=== PATIENT | male | born 1980 | race Caucasian/White ===

== ENCOUNTER → 2023-09-04 | Outpatient (CLI) | payer BC ==
[2023-09-04 20:40] LABS: Basophils # (A) 0.06 X 10*3/uL (0.00-0.10); Eosinophils # (A) 0.31 X 10*3/uL (0.04-0.35); Eosinophils % (A) 5.1 %; HCT 45.2 % (39.6-50.0); HGB 14.8 d/dL (13.0-17.0); Lymphocytes # (A) 1.79 X 10*3/uL (0.90-5.00); Lymphocytes % (A) 29.5 %; MCH 30.6 pg (27.0-32.0); MCHC 32.7 d/dL (32.0-37.0); MCV 93.6 FL (80.0-97.0); Mean Platelet Volume 10.7 FL (9.5-12.2); Monocytes # (A) 0.43 X 10*3/uL (0.20-1.00); Monocytes % (A) 7.1 %; NRBC Per 100 WBC 0 X 10*3/uL (0.00-0.01); Neutrophils # (A) 3.45 X 10*3/uL (1.80-7.70); Platelet Count 239 X 10*3/uL (140-440); RBC 4.83 X 10*6/uL (4.40-5.60); RDW 12.2 % (11.5-14.5); WBC 6.06 X 10*3/uL (4.50-10.00)
== END | disposition home or self-care (01) ==
LOC: LABPAT 13:42
PROVIDERS: ATTEND Surgery
DX: Z01.812 Encounter for preprocedural laboratory examination (principal); K42.9 Umbilical hernia without obstruction or gangrene
CPT/HCPCS: 36415; 85025; 86850; 86900; 86901; 93005

== ENCOUNTER 2023-09-09 12:43 | Day surgery (SDC) | payer BC ==
[2023-09-04 08:47] VITALS: BMI 36.2
[~2023-09-09 12:43] MED LIST: LACTATED RINGERS 1,000 ML IV SCH; LIDOCAINE 1% (10MG/ML) FOR IV START INTRADERMA PRN; ONDANSETRON 4 MG/2 ML VIAL IVP PRN
[2023-09-09 13:39] VITALS: RESP 16; TEMP 98.1
[2023-09-09] MEDS ORDERED: PROPOFOL 10 MG/ML 20 ML VIAL IV ONE (14:41)
[2023-09-09] MEDS ORDERED: LIDOCAINE 1% INJ 10MG/ML (20 ML MDV) ONE (14:41)
--- NOTE | 2023-09-09 14:44 | P.GSHP ---
History of Present Illness H&P Date: 09/09/23 Chief Complaint: GI bleed, GERD This a 42-year-old male who presents today for EGD colonoscopy. Patient is issues with GI bleed and GERD. Past Medical History Past Medical History: GERD/Reflux, Hyperlipidemia, Hypertension History of Any Multi-Drug Resistant Organisms: None Reported Past Surgical History: Appendectomy Additional Past Surgical History / Comment(s): scheduled for umbilical hernia surgery Past Anesthesia/Blood Transfusion Reactions: No Reported Reaction Smoking Status: Current every day smoker - Past Family History Mother Family Medical History: Cancer Additional Family Medical History / Comment(s): colon cancer Medications and Allergies Home Medications Medication Instructions Recorded Confirmed Type Atorvastatin [Lipitor] 10 mg PO DAILY 09/04/23 09/04/23 History Omeprazole 40 mg PO DAILY 09/04/23 09/04/23 History amLODIPine [Norvasc] 5 mg PO DAILY 09/04/23 09/04/23 History Allergies Allergy/AdvReac Type Severity Reaction Status Date / Time No Known Allergies Allergy Verified 09/09/23 13:16 Surgical - Exam Vital Signs Temp Pulse Resp BP Pulse Ox 98.1 F 99 16 144/84 94 L 09/09/23 13:30 09/09/23 13:30 09/09/23 13:30 09/09/23 13:30 09/09/23 13:30 - General well developed, well nourished, no distress - Eyes PERRL - ENT normal pinna - Neck no masses - Respiratory normal expansion - Cardiovascular Rhythm: regular - Abdomen Abdomen: soft, non tender Assessment and Plan Assessment: GI bleed, GERD. We'll perform EGD and colonoscopy.
--- NOTE | 2023-09-09 15:11 | P.OP ---
Date of Procedure: 09/09/23 Preoperative Diagnosis: GERD Rectal bleeding Postoperative Diagnosis: Antral gastritis Small sliding hiatal hernia Mild esophagitis Normal colon Mild internal and external hemorrhoids Procedure(s) Performed: EGD Colonoscopy Anesthesia: MAC Surgeon: Carlton Cruz Pathology: other (Antrum, esophagus) Condition: stable Disposition: PACU Description of Procedure: The patient's placed on the operating table in the supine position. He received IV sedation. The gastro-/oropharynx passed in the esophagus and stomach. Scope was placed through the pylorus. The first and second portion of the duodenum appeared normal. Scope was then brought back the antrum this. Mildly inflamed. A biopsies was performed. The scope was then retroflexed the remainder the stomach appeared normal. There was a small sliding hiatal hernia. The GE junction was at 39 7 is. The distal esophagus appeared mildly inflamed. A biopsies performed. The proximal esophagus appeared normal. Next digital rectal exam performed. There was a few internal and external hemorrhoids. The prostate was symmetrical without nodules. The flexible colonoscope was then placed patient anus and passed throughout the entire colon. The ileocecal valve was visualized. The cecum, ascending and transverse colon appeared normal. The descending and sigmoid colon appeared normal. Scope summer back the rectum and this appeared normal. Scope withdrawn for patient. There was no evidence of any active GI bleed. Presumed patient may have had bleeding from hemorrhoids.
[2023-09-09 15:34] VITALS: BP 144/80; PULSE 75
== END 2023-09-09 15:40 | disposition home or self-care (01) ==
LOC: ORWHC2ENDO 12:43
PROVIDERS: ATTEND Surgery
DX: K21.00 Gastro-esophageal reflux disease with esophagitis, without bleeding (principal); K62.5 Hemorrhage of anus and rectum; K29.50 Unspecified chronic gastritis without bleeding; K44.9 Diaphragmatic hernia without obstruction or gangrene; K64.4 Residual hemorrhoidal skin tags; K64.8 Other hemorrhoids; I10 Essential (primary) hypertension; E78.5 Hyperlipidemia, unspecified; K21.9 Gastro-esophageal reflux disease without esophagitis; F17.200 Nicotine dependence, unspecified, uncomplicated; Z90.49 Acquired absence of other specified parts of digestive tract; Z80.0 Family history of malignant neoplasm of digestive organs; Z79.899 Other long term (current) drug therapy; Z98.890 Other specified postprocedural states
CPT/HCPCS: 45378; 43239; J2001; J2704; 88305

== ENCOUNTER 2023-09-11 05:45 | Day surgery (SDC) | payer BC ==
[~2023-09-11 05:45] MED LIST changes: +ACETAMINOPHEN TAB 500 MG TAB PO PRN; +HEPARIN SODIUM,PORCINE/PF 5,000 UNIT/0.5 ML SYRINGE SQ PRN; -LACTATED RINGERS 1,000 ML IV SCH; -LIDOCAINE 1% (10MG/ML) FOR IV START INTRADERMA PRN; -ONDANSETRON 4 MG/2 ML VIAL IVP PRN
[2023-09-11] MEDS ORDERED: HYDROmorphone 0.5 MG/0.5 ML SYRINGE IVP PRN (06:09)
[2023-09-11] MEDS ORDERED: DEXAMETHASONE SOD PHOSPHATE 4 MG/ML 1 ML VIAL IV ONE (06:09)
[2023-09-11] MEDS ORDERED: LIDOCAINE 1% (10MG/ML) FOR IV START INTRADERMA PRN (06:09)
[2023-09-11] MEDS ORDERED: ONDANSETRON 4 MG/2 ML VIAL IVP ONE (06:09)
[2023-09-11] MEDS: LACTATED RINGERS 1,000 ML IV SCH ×2 (06:41→07:27)
[2023-09-11] MEDS ORDERED: MIDAZOLAM 2 MG/2 ML VIAL IVP ONE (07:01)
[2023-09-11] MEDS ORDERED: fentaNYL (PF) 50 MCG/ML 2 ML AMP IVP ONE (07:01)
[2023-09-11] MEDS ORDERED: ROCURONIUM 10 MG/ML (5 ML VIAL) IV ONE (07:24)
[2023-09-11] MEDS ORDERED: MIDAZOLAM 2 MG/2 ML VIAL ONE (07:24)
[2023-09-11] MEDS ORDERED: fentaNYL (PF) 50 MCG/ML 2 ML AMP ONE (07:24)
[2023-09-11] MEDS ORDERED: PROPOFOL 10 MG/ML 20 ML VIAL IV ONE (07:24)
[2023-09-11] MEDS ORDERED: KETAMINE HCL IN 0.9 % NACL 50 MG/5 ML SYRINGE ONE (07:24)
[2023-09-11] MEDS ORDERED: SUCCINYLCHOLINE CHLORIDE 200 MG/10 ML VIAL IV ONE (07:24)
[2023-09-11] MEDS ORDERED: LIDOCAINE 1% INJ 10MG/ML (20 ML MDV) ONE (07:24)
[2023-09-11] MEDS ORDERED: SODIUM CHLORIDE 0.9% (PF) 10 ML VIAL ONE (07:24)
[2023-09-11] MEDS ORDERED: KETOROLAC 15 MG/ML 1 ML VIAL ONE (07:24)
[2023-09-11] MEDS ORDERED: ROPIVACAINE 5 MG/ML 30 ML VIAL ONE (07:24)
--- NOTE | 2023-09-11 07:27 | P.ANPRN ---
Procedure Note - Anesthesia - Nerve Block Performed Bilateral Erector Spinae Single Time Out Performed: Yes (0700) Date of Procedure: 09/11/23 Procedure Start Time: : Procedure Stop Time: :07 Location of Patient: PreOp Indication: Acute Post-Operative Pain, Requested by Surgeon Specifically requested for management of pain by : Carlton Cruz Sedation Type: Sedate with meaningful contact maintained Preparation: Sterile Prep Position: Prone Catheter: None Needle Types: Pajunk Needle Gauge: 21 (x2) Ultrasound used to visualize needle placement: Yes Ultrasound used to observe medication spread: Yes Injectate: 0.5% Ropivacaine (see comment for volume) (15cc + 10cc each side) Blood Aspirated: No Pain Paresthesia on Injection Noted: No Resistance on Injection: Normal Image Stored and Saved: Yes Events: Uneventful and Well Tolerated
[2023-09-11] MEDS ORDERED: LIDOCAINE 0.5%-EPI 1:200,000 50 ML VIAL SQ ONE ×2 (07:28)
--- NOTE | 2023-09-11 08:51 | P.OP ---
Date of Procedure: 09/11/23 Preoperative Diagnosis: Incarcerated umbilical hernia Postoperative Diagnosis: Incarcerated umbilical hernia Procedure(s) Performed: Laparoscopic robotic system repair of incarcerated umbilical hernia Partial omentectomy Transversus abdominis plane block Anesthesia: WALESKA Surgeon: Carlton Cruz Estimated Blood Loss (ml): 5 Pathology: other (Omentum) Condition: stable Disposition: PACU Operative Findings: 5 cm umbilical hernia Description of Procedure: The patient was placed on the operating table in the supine position. He received general anesthesia. His abdomen was prepped and draped usual fashion. Using a 5 mm optical trocar under direct visualization the peritoneal cavity was entered in the left upper quadrant. The abdomen was then insufflated. The laparoscope was placed back into the perineal cavity. Next a 8 mm robotic tro car was placed in the left lower quadrant and a 12 mm robotic trocar was placed in the left lateral position. The original 5 mm trocar was exchanged for a 8 mm robotic trocar. A four-quadrant transverse subcostal block was performed using 1% local Xylocaine. The patient's placed in the left side up position. And the patient was docked to the robot. The umbilical hernia was visualized. Using hook cautery the peritoneum over the umbilical hernia was excised. Incarcerated omentum was dissected free and sent to pathology. The fascial opening was repaired using 0V LOC suture. Next a piece of 11 cm round ventral light ST mesh was placed into the. Cavity and secured with 2 OV lock suture. The patient was undocked the robot. The needles were retrieved. The fascia of the 12 mm trocar site was closed with 0 Ethibond suture. Skin was closed interrupted 3-0 Monocryl suture. Dermabond dressings was applied. Patient top procedure well and was sent to recovery room stable condition.
[2023-09-11 08:59] VITALS: TEMP 97
[2023-09-11 09:51] VITALS: BP 139/73; PULSE 88; RESP 16
== END 2023-09-11 10:12 | disposition home or self-care (01) ==
LOC: OR 05:45
PROVIDERS: ATTEND Surgery
DX: K42.0 Umbilical hernia with obstruction, without gangrene (principal); G89.18 Other acute postprocedural pain; I10 Essential (primary) hypertension; E78.5 Hyperlipidemia, unspecified; F17.210 Nicotine dependence, cigarettes, uncomplicated; K21.9 Gastro-esophageal reflux disease without esophagitis; F17.200 Nicotine dependence, unspecified, uncomplicated; Z90.49 Acquired absence of other specified parts of digestive tract; Z79.899 Other long term (current) drug therapy
CPT/HCPCS: 64999; 88302; 49594; C1781; J2250; J0330; J1100; J0690; J2405; J2001; J3010; J2795; J1885; J2704; J1644

== ENCOUNTER → 2024-09-17 | Outpatient (CLI) | payer BC ==
[2024-09-17 18:37] LABS: HCT 48.7 % (39.6-50.0); HGB 15.7 g/dL (13.0-17.0); MCH 30.4 pg (27.0-32.0); MCHC 32.2 g/dL (32.0-37.0); MCV 94.2 FL (80.0-97.0); Mean Platelet Volume 10.6 FL (9.5-12.2); NRBC Per 100 WBC 0 X 10*3/uL (0.00-0.01); Platelet Count 243 X 10*3/uL (140-440); RBC 5.17 X 10*6/uL (4.40-5.60); RDW 12.8 % (11.5-14.5)
[2024-09-17 20:47] LABS: NT-Pro-B-Type Natriuretic Pept 2593 pg/mL (0-125)
[2024-09-17 21:03] LABS: BUN/Creat Ratio 19.64 Ratio (12.00-20.00); Blood Urea Nitrogen 21.6 mg/dL (9.0-27.0); Calcium 9.1 mg/dL (8.7-10.3); Carbon Dioxide 21.3 mmol/L (21.6-31.8); Chloride 106 mmol/L (96-109); Glucose 100 mg/dL (70-110); Potassium 4.1 mmol/L (3.5-5.5); Sodium 142 mmol/L (135-145)
== END | disposition home or self-care (01) ==
LOC: LABWHC1 14:30
PROVIDERS: ATTEND Internal Medicine Cardiovascular Disease
DX: I50.22 Chronic systolic (congestive) heart failure (principal)
CPT/HCPCS: 36415; 80048; 83880; 84443; 85027

== ENCOUNTER 2024-10-01 08:59 | Day surgery (SDC) | payer BC ==
[~2024-10-01 08:59] MED LIST changes: -ACETAMINOPHEN TAB 500 MG TAB PO PRN; +ALPRAZolam 0.25 MG TAB PO PRN; +ALPRAZolam 0.5 MG TAB PO PRN; +ATORVASTATIN 80 MG TAB PO STA; -HEPARIN SODIUM,PORCINE/PF 5,000 UNIT/0.5 ML SYRINGE SQ PRN; +NITROGLYCERIN SL TABS 0.4 MG TAB SUBLINGUAL PRN
[2024-10-01] MEDS: SODIUM CHLORIDE 0.9% 1,000 ML in EMPTY BAG 1 BAG IV SCH (09:49)
[2024-10-01] MEDS: ASPIRIN 325 MG TAB PO STA (09:49)
[2024-10-01] MEDS: IV FLUID CONTINUATION 1,000 ML IV ONE (09:51)
[2024-10-01 09:58] VITALS: TEMP 98.3
[2024-10-01] MEDS: HEPARIN SODIUM,PORCINE (1 ML) 2,500 UNIT in SODIUM CHLORIDE 0.9% 250 ML IRRIGATION PRN (10:16)
[2024-10-01] MEDS: HEPARIN SODIUM,PORCINE 10,000 UNIT in SODIUM CHLORIDE 0.9% 1,000 ML IRRIGATION PRN (10:16)
[2024-10-01] MEDS: MIDAZOLAM 2 MG/2 ML VIAL IVP ONE (10:39)
[2024-10-01] MEDS: fentaNYL (PF) 50 MCG/1 ML VIAL IVP ONE (10:39)
[2024-10-01] MEDS: LIDOCAINE 1% INJ 10MG/ML (20 ML MDV) SQ ONE (10:42)
[2024-10-01] MEDS: VERAPAMIL SYRINGE (5 MG/10 ML) INTRAARTER ONE (10:44)
[2024-10-01] MEDS: HEPARIN SODIUM 1,000 UN/ML (10ML VL) IVP ONE (10:47)
[2024-10-01] MEDS: IOPAMIDOL-370 100ML BTL INJ ONE (10:51)
[2024-10-01] MEDS: FUROSEMIDE 10 MG/ML 4 ML VIAL IVP ONE (10:58)
[2024-10-01] MEDS ORDERED: RX INFO: IV CONTRAST WAS GIVEN 1 EACH MISC MISCELLANE PRN (11:05)
[2024-10-01 11:28] VITALS: RESP 16
[2024-10-01 18:49] VITALS: BP 125/82; PULSE 98
--- NOTE | 2024-10-01 21:43 | CC ---
CARDIAC CATHETERIZATION REPORT INDICATION: Cardiomyopathy with severe LV systolic dysfunction. PROCEDURE NOTE: After obtaining informed consent, left heart catheterization and coronary angiogram were performed via the right radial artery using standard Chris catheters. The patient tolerated the procedure well without any obvious immediate complications. A TR band will be placed for hemostasis. Right radial artery access was obtained using Seldinger technique, 6-[place] sheath was placed. Catheters and wires were floated into the ascending aorta under fluoroscopic guidance. The patient received verapamil and heparin per protocol. FINDINGS: HEMODYNAMICS: Left ventricular end-diastolic pressure is 30 mmHg. There is no significant gradient across the aortic valve. LEFT VENTRICULOGRAM: Left ventriculogram is not performed. ANGIOGRAPHIC DATA: 1. Right coronary artery is a large dominant vessel and is free of significant stenosis. 2. Left main coronary artery is a short vessel and is free of disease divides into circumflex coronary artery and left anterior descending coronary artery. LAD and its branches, circumflex coronary artery and its branches are free of significant stenosis. CONCLUSIONS: 1. Normal coronary arteries. 2. Nonischemic cardiomyopathy with severe LV dysfunction. PLAN: I am going to add Toprol-XL 50 mg daily to his medical regimen. Stop the amlodipine and add the Lasix. I will refer the patient to EP for BiV AICD. The patient is an alcoholic and I have advised him to stop drinking. His cardiomyopathy seems to be related to ETOH abuse. MMODL / IJN: [id number] /
== END 2024-10-01 15:00 | disposition home or self-care (01) ==
LOC: CATHCVL 08:59
PROVIDERS: ATTEND Internal Medicine Cardiovascular Disease
DX: I42.9 Cardiomyopathy, unspecified (principal); I10 Essential (primary) hypertension; E78.5 Hyperlipidemia, unspecified; Z87.891 Personal history of nicotine dependence; I50.22 Chronic systolic (congestive) heart failure
CPT/HCPCS: 93458; C1769; C1894; J2250; J1644 ×3; J1940; J2003; Q9967; J3010